=== PATIENT | female | born 1960 | race Caucasian/White ===

== ENCOUNTER 2018-04-23 08:42 | Emergency (ER) | payer BC ==
[2018-04-23 08:55] VITALS: BP 126/78
[2018-04-23] MEDS ORDERED: Ibuprofen TAB* 600 MG PO ONE (09:07)
--- NOTE | 2018-04-23 09:10 | UC ---
Syncope/New Syncope HPI - HPI Summary HPI Summary: WOKE UP THIS MORNING FEELING OVERALL WEAK, DIZZY AND NAUSEATED. STATES SHE FEELS LIKE SHE IS GOING TO PASS OUT. REPORTS SHE HAS HAD 3 EPISODES OF EMESIS AND ALSO COMPLAINS OF SOME WATERY DIARRHEA. IS BREATHING HEAVILY AND QUICKLY BUT DENIES FEELING SHORT OF BREATH. DENIES CHEST PAIN BUT REPORTS PALPITATIONS. STATES SHE HAS HAD LOW POTASSIUM IN THE PAST AND IS CONCERNED THIS MAY BE THE CASE AGAIN. ON ARRIVAL TO THE WAS FOUND TO HAVE A FEVER OF 101.4. - History Of Current Complaint Chief Complaint: UCGeneralIllness Stated Complaint: VOMITING SHAKING HEART BEATING FAST Time Seen by Provider: 04/23/18 08:45 Hx Obtained From: Patient Onset/Duration: Sudden Onset, Lasting Hours, Still Present Activity At Onset: At Rest Timing: Constant Pain Intensity: 0 Pain Scale Used: 0-10 Numeric Aggravating Factor(s): Nothing Alleviating Factor(s): Nothing Associated Signs And Symptoms: Positive: Diarrhea, Dizzy, Lightheadedness, Palpitations, Vomiting, Weakness. Negative: Chest Pain - Allergies/Home Medications Allergies/Adverse Reactions: Allergies Allergy/AdvReac Type Severity Reaction Status Date / Time amoxicillin [From Augmentin] Allergy Nausea And Verified 04/23/18 08:56 Vomiting clavulanic acid Allergy Nausea And Verified 04/23/18 08:56 [From Augmentin] Vomiting Home Medications: Home Medications Levothyroxine TAB* [Synthroid TAB*] 1 tab PO DAILY 04/23/18 [History Confirmed 04/23/18] PMH/Surg Hx/FS Hx/Imm Hx Endocrine History: Hypothyroidism Respiratory History: Asthma - Surgical History Surgical History: None - Family History Known Family History: Negative: Hypertension - Social History Alcohol Use: Occasionally Substance Use Type: None Smoking Status (MU): Never Smoked Tobacco - Immunization History Most Recent Tetanus Shot: UTD Review of Systems Constitutional: Fever Respiratory: Other - Tachypnea Cardiovascular: Palpitations Gastrointestinal: Vomiting, Diarrhea, Nausea Genitourinary: Negative Psychological: Anxious All Other Systems Reviewed And Are Negative: Yes Physical Exam Triage Information Reviewed: Yes Appearance: No Pain Distress, Well-Nourished, Other: - anxious, breathing rapidly Vital Signs: Initial Vital Signs Temp 101.4 F 04/23/18 08:51 Pulse 74 04/23/18 08:51 Resp 33 04/23/18 08:51 BP 126/78 04/23/18 08:51 Pulse Ox 100 04/23/18 08:51 Vital Signs Reviewed: Yes Eyes: Positive: Conjunctiva Clear ENT: Positive: Hearing grossly normal Neck: Positive: Supple Respiratory: Positive: Lungs clear, Normal breath sounds, Other: - TACHYPNEA, BREATHING HEAVILY Cardiovascular Exam: Normal Abdomen Description: Positive: Soft Musculoskeletal: Positive: No Edema Neurological: Positive: Alert Psychological: Positive: Age Appropriate Behavior Skin: Negative: rashes Diagnostics - EKG Cardiac Rate: NL - 67BPM Cardiac Rhythm: Sinus: Normal Ectopy: None ST Segment: Normal Syncope Course/Dx - Course Course Of Treatment: ADVISED PATIENT THAT HER POTASSIUM AND TSH WERE CHECKED BY HER PCP YESTERDAY AND FOUND TO BE WITHIN NORMAL LIMITS. POC GLUCOSE TODAY ACCEPTABLE AT 145. GIVEN PATIENT'S CONTINUED SYMPTOMS AND FEELINGS OF DIFFICULTY BREATHING AND PALPITATIONS WITH MULTIPLE EPISODES OF NAUSEA AND VOMITING HAVE ADVISED SHE GO TO [place] [facility] [place] FOR FURTHER EVALUATION. PT OFFERED TRANSPORT BY AMBULANCE BUT DECLINES. ADVISED THAT BY NOT TRAVELING IN A MONITORED SETTING SHE COULD BE RISKING WORSENING OF HER CONDITION THAT COULD POSE A THREAT TO HER LIFE, HEALTH AND MEDICAL SAFETY. SHE VERBALIZES UNDERSTANDING AND CONTINUES TO DECLINE AMBULANCE TRANSFER.. - Differential Dx/Diagnosis Provider Diagnoses: DIZZY/PRESYNCOPE/FEVER Discharge - Sign-Out/Discharge Documenting (check all that apply): Discharge/Admit/Transfer - Discharge Plan Condition: Stable Disposition: HOME Patient Education Materials: Near Syncope (ED), Dizziness (ED) Referrals: Stephanie Marino MD [Primary Care Provider] - If Needed Additional Instructions: GO DIRECTLY TO THE [facility] FROM HERE FOR FURTHER EVALUATION. - Billing Disposition and Condition Condition: STABLE Disposition: HOME
== END 2018-04-23 09:18 | disposition home or self-care (01) ==
LOC: UCEAST 08:42
DX: R42 Dizziness and giddiness (principal); R55 Syncope and collapse; R50.9 Fever, unspecified; Z88.3 Allergy status to other anti-infective agents; E03.9 Hypothyroidism, unspecified; J45.909 Unspecified asthma, uncomplicated
CPT/HCPCS: 93005; 99212; A9270-GY; G0463

== ENCOUNTER 2018-04-23 09:40 | Emergency (ER) | payer BC ==
[2018-04-23 11:30] LABS: ABS Basophils 0 10^3/ul (0-0.2); ABS Eosinophils 0 10^3/ul (0-0.6); ABS Lymphocytes 0.7 10^3/ul (1.0-4.8); ABS Monocytes 0.3 10^3/ul (0-0.8); ABS Neutrophils 6.6 10^3/ul (1.5-7.7); ABS Nucleated RBC 0 10^3/ul; Eosinophil % 0.1 % (0-6); Hematocrit 41 % (35-47); Hemoglobin 13.8 g/dl (12.0-16.0); Lymphocyte % 9.3 % (25-47); Mean Corpuscular HGB Conc 34 g/dl (31-36); Mean Corpuscular Hemoglobin 28 pg (27-31); Mean Corpuscular Volume 83 fL (80-97); Mean Platelet Volume 8.3 um3 (7.4-10.4); Nucleated Red Blood Cells % 0; Platelet Count 234 10^3/ul (150-450); Red Blood Count 4.89 10^6/ul (4.0-5.4); Red Cell Distribution Width 14 % (10.5-15); White Blood Count 7.7 10^3/ul (3.5-10.8)
[2018-04-23 11:44] LABS: Urine Appearance Clear; Urine Blood Negative (Negative); Urine Color Yellow; Urine Ketones 1+ (Negative); Urine Protein Negative (Negative); Urine Specific Gravity 1.009 (1.010-1.030); Urine Urobilinogen Negative (Negative)
[2018-04-23 11:50] LABS: EGFR Non-African American 73.9 (>60)
[2018-04-23] MEDS ORDERED: Potassium Chlor TAB* 20 MEQ TAB.ER PO ONE (12:58)
[2018-04-23 13:08] VITALS: BP 124/79
--- NOTE | 2018-04-23 13:21 | ED ---
Landy العلي Emily, scribed for Cheng Arevalo MD on 04/23/18 at 1051 . Dizziness - HPI Summary HPI Summary: This patient is a 58 year old F referred [facility] [place] accompanied by friend with a chief complaint of intermittent dizziness that began 8 months ago, and worsened this morning. The patient rates the pain 4/10 in severity. Symptoms aggravated by nothing. Symptoms alleviated by nothing. Patient reports vomiting, lightheadedness, weakness, and uncontrollable body shaking. Pt denies bilateral lower extremity edema. Pt reports that a potassium drawn yesterday was 4.0. She has seen her PCP for these symptoms, and reports that she has referred the pt to an ENT. Pt reports a history of hypoglycemia and hypokalemia. - History Of Current Complaint Chief Complaint: EDGeneral Stated Complaint: DIZZINESS/NEAR SYNCOPE Time Seen by Provider: 04/23/18 10:14 Hx Obtained From: Patient Onset/Duration: Still Present Timing: Frequency Of Episodes - 2 to 3 times a week Severity Initially: Moderate Severity Currently: Moderate Character: Dizzy Aggravating Factor(s): Nothing Alleviating Factor(s): Nothing Associated Signs And Symptoms: Positive: Other: - Positive vomiting, lightheadedness, weakness, and "uncontrollable body shaking" - Allergies/Home Medications Allergies/Adverse Reactions: Allergies Allergy/AdvReac Type Severity Reaction Status Date / Time amoxicillin [From Augmentin] Allergy Nausea And Verified 04/23/18 08:56 Vomiting clavulanic acid Allergy Nausea And Verified 04/23/18 08:56 [From Augmentin] Vomiting PMH/Surg Hx/FS Hx/Imm Hx Previously Healthy: No Endocrine/Hematology History: Reports: Hx Thyroid Disease, Other Endocrine/ Hematological Disorders - Hypoglycemia and hypokalemia Respiratory History: Reports: Hx Asthma Infectious Disease History: No Infectious Disease History: Denies: Traveled Outside the [place] in Last 30 Days - Family History Known Family History: Positive: Other - Breast CA - Social History Occupation: Employed Full-time Lives: Alone Alcohol Use: Occasionally Substance Use Type: Reports: None Smoking Status (MU): Never Smoked Tobacco Review of Systems Positive: Vomiting Negative: Edema Neurological: Other - Positive lightheadedness, "uncontrollable body shaking" and dizziness Positive: Weakness All Other Systems Reviewed And Are Negative: Yes Physical Exam - Summary Physical Exam Summary: Appearance: The patient is well-nourished in no acute distress and in no acute pain. Skin: The skin is warm and dry and skin color reflects adequate perfusion. HEENT: The head is normocephalic and atraumatic. The pupils are equal and reactive. The conjunctivae are clear and without drainage. No nystagmus. Nares are patent and without drainage. Mouth reveals moist mucous membranes and the throat is without erythema and exudate. R TM is occluded with hard cerumen. L TM is partially occluded with hard cerumen, but TM is partially visible and appears normal. Neck: the neck is supple with full range of motion and non-tender. There are no carotid bruits. There is no neck vein distension. Respiratory: Chest is non-tender. Lungs are clear to auscultation and breath sounds are symmetrical and equal. Cardiovascular: Heart is regular rate and rhythm. There is no murmur or rub auscultated. There is no peripheral edema and pulses are symmetrical and equal. Abdomen: The abdomen is soft and non-tender. There are normal bowel sounds heard in all four quadrants and there is no organomegaly palpated. Musculoskeletal: There is no back tenderness noted. Extremities are non-tender with full range of motion. There is good capillary refill. There is no peripheral edema or calf tenderness elicited. Neurological: Patient is alert and oriented to person, place and time. The patient has symmetrical motor strength in all four extremities. Cranial nerves are grossly intact. Deep tendon reflexes are symmetrical and equal in all four extremities. Psychiatric: The patient has an appropriate affect and does not exhibit any anxiety or depression. Triage Information Reviewed: Yes Vital Signs On Initial Exam: Initial Vitals Temp Pulse Resp BP Pulse Ox 99.7 F 74 18 142/112 100 04/23/18 09:42 04/23/18 09:42 04/23/18 09:42 04/23/18 09:42 04/23/18 09:42 Vital Signs Reviewed: Yes Diagnostics - Vital Signs Vital Signs Temp Pulse Resp BP Pulse Ox 04/23/18 10:32 57 1 106/72 95 04/23/18 10:02 62 20 120/77 98 04/23/18 10:00 61 98 04/23/18 09:58 70 98 04/23/18 09:42 99.7 F 74 18 142/112 100 - Laboratory Lab Results: Lab Results 04/23/18 04/23/1818 Range/Units 11:16 11:16 11:16 WBC 7.7 (3.5-10.8) 10^3/ul RBC 4.89 (4.0-5.4) 10^6/ul Hgb 13.8 (12.0-16.0) g/dl Hct 41 (35-47) % MCV 83 (80-97) fL MCH 28 (27-31) pg MCHC 34 (31-36) g/dl RDW 14 (10.5-15) % Plt Count 234 (150-450) 10^3/ul MPV 8.3 (7.4-10.4) um3 Neut % (Auto) 85.5 H (38-83) % Lymph % (Auto) 9.3 L (25-47) % Kid[place] % (Auto) 4.5 (0-7) % Eos % (Auto) 0.1 (0-6) % Baso % (Auto) 0.6 (0-2) % Absolute Neuts (auto) 6.6 (1.5-7.7) 10^3/ul Absolute Lymphs (auto) 0.7 L (1.0-4.8) 10^3/ul Absolute Monos (auto) 0.3 (0-0.8) 10^3/ul Absolute Eos (auto) 0 (0-0.6) 10^3/ul Absolute Basos (auto) 0 (0-0.2) 10^3/ul Absolute Nucleated RBC 0 10^3/ul Nucleated RBC % 0 Sodium 137 L (139-145) mmol/L Potassium 3.3 L (3.5-5.0) mmol/L Chloride 105 (101-111) mmol/L Carbon Dioxide 23 (22-32) mmol/L Anion Gap 9 (2-11) mmol/L BUN 11 (6-24) mg/dL Creatinine 0.80 (0.51-0.95) mg/dL Est GFR ( Amer) 95.1 (>60) Est GFR (Non-Af Amer) 73.9 (>60) BUN/Creatinine Ratio 13.8 (8-20) Glucose 95 (70-100) mg/dL Lactic Acid 0.9 (0.5-2.0) mmol/L Calcium 9.1 (8.6-10.3) mg/dL Magnesium 2.0 (1.9-2.7) mg/dL Total Bilirubin 0.60 (0.2-1.0) mg/dL AST 21 (13-39) U/L ALT 16 (7-52) U/L Alkaline Phosphatase 40 (34-104) U/L Troponin I 0.00 (<0.04) ng/mL Total Protein 6.7 (6.4-8.9) g/dL Albumin 4.0 (3.2-5.2) g/dL Globulin 2.7 (2-4) g/dL Albumin/Globulin Ratio 1.5 (1-3) TSH 0.70 (0.34-5.60) mcIU/mL Urine Color Urine Appearance Urine pH (5-9) Ur Specific [place] (1.010-1.030) Urine Protein (Negative) Urine Ketones (Negative) Urine Blood (Negative) Urine Nitrate (Negative) Urine Bilirubin (Negative) Urine Urobilinogen (Negative) Ur Leukocyte Esterase (Negative) Urine Glucose (Negative) 04/23/18 Range/Units 11:29 WBC (3.5-10.8) 10^3/ul RBC (4.0-5.4) 10^6/ul Hgb (12.0-16.0) g/dl Hct (35-47) % MCV (80-97) fL MCH (27-31) pg MCHC (31-36) g/dl RDW (10.5-15) % Plt Count (150-450) 10^3/ul MPV (7.4-10.4) um3 Neut % (Auto) (38-83) % Lymph % (Auto) (25-47) % Kidder % (Auto) (0-7) % Eos % (Auto) (0-6) % Baso % (Auto) (0-2) % Absolute Neuts (auto) (1.5-7.7) 10^3/ul Absolute Lymphs (auto) (1.0-4.8) 10^3/ul Absolute Monos (auto) (0-0.8) 10^3/ul Absolute Eos (auto) (0-0.6) 10^3/ul Absolute Basos (auto) (0-0.2) 10^3/ul Absolute Nucleated RBC 10^3/ul Nucleated RBC % Sodium (139-145) mmol/L Potassium (3.5-5.0) mmol/L Chloride (101-111) mmol/L Carbon Dioxide (22-32) mmol/L Anion Gap (2-11) mmol/L BUN (6-24) mg/dL Creatinine (0.51-0.95) mg/dL Est GFR ( Amer) (>60) Est GFR (Non-Af Amer) (>60) BUN/Creatinine Ratio (8-20) Glucose (70-100) mg/dL Lactic Acid (0.5-2.0) mmol/L Calcium (8.6-10.3) mg/dL Magnesium (1.9-2.7) mg/dL Total Bilirubin (0.2-1.0) mg/dL AST (13-39) U/L ALT (7-52) U/L Alkaline Phosphatase (34-104) U/L Troponin I (<0.04) ng/mL Total Protein (6.4-8.9) g/dL Albumin (3.2-5.2) g/dL Globulin (2-4) g/dL Albumin/Globulin Ratio (1-3) TSH (0.34-5.60) mcIU/mL Urine Color Yellow Urine Appearance Clear Urine pH 8.0 (5-9) Ur Specific [place] 1.009 L (1.010-1.030) Urine Protein Negative (Negative) Urine Ketones 1+ A (Negative) Urine Blood Negative (Negative) Urine Nitrate Negative (Negative) Urine Bilirubin Negative (Negative) Urine Urobilinogen Negative (Negative) Ur Leukocyte Esterase Negative (Negative) Urine Glucose Negative (Negative) Result Diagrams: 04/23/18 11:16 04/23/18 11:16 Lab Statement: Any lab studies that have been ordered have been reviewed, and results considered in the medical decision making process. - EKG 1057 Cardiac Rate: NL EKG Rhythm: Sinus Rhythm - [address] Segment: Normal Ectopy: None Re-Evaluation - Re-Evaluation First Eval Re-Evaluation Time: 12:52 Change: Unchanged Comment: Discussed plan of care with pt Dizzy Course/Dx - Course Course Of Treatment: Ms. Spence presents complaining that she had an episode of shakiness this morning which felt similar to an episode of hypokalemia that she had in the past. She was nontoxic in appearance and her vitals were stable here and her potassium returned at 3.3. She had oral replacement therapy and was discharged home to follow up if any symptoms continue. - Diagnoses Provider Diagnoses: Hypokalemia Discharge - Sign-Out/Discharge Documenting (check all that apply): Discharge/Admit/Transfer - Discharge home - Discharge Plan Condition: Stable Disposition: HOME Patient Education Materials: Hypokalemia (ED) Referrals: Stephanie Marino MD [Primary Care Provider] - 3 Days Additional Instructions: RETURN TO THE EMERGENCY DEPARTMENT FOR NEW OR WORSENING SYMPTOMS - Billing Disposition and Condition Condition: STABLE Disposition: HOME The documentation as recorded by the Landy eid Emily accurately reflects the service I personally performed and the decisions made by me, Cheng Arevalo MD.
== END 2018-04-23 13:09 | disposition home or self-care (01) ==
LOC: ED 09:40
DX: E87.6 Hypokalemia (principal); J45.909 Unspecified asthma, uncomplicated; E07.9 Disorder of thyroid, unspecified
CPT/HCPCS: 36415; 80053; 81003; 83605; 83735; 84443; 84484; 85025; 93005; 99283; A9270-GY